=== PATIENT | female | born 1980 ===

== ENCOUNTER 2019-01-24 07:27 | Day surgery (SDC) | payer OTHER ==
[2019-01-22 15:41] VITALS: BP 138/91
[2019-01-22 15:52] LABS: BASOPHIL % 0.2 % (0.0-0.2); EOSINOPHIL # 0.1 10^3/uL (0.0-0.2); EOSINOPHIL % 2.4 % (0.0-5.0); HEMOGLOBIN 10.2 g/dL (12.0-15.0); LYMPHOCYTES # 1.3 10^3/uL (1.0-4.8); LYMPHOCYTES % 24.3 % (24.0-44.0); MEAN CELL HGB 24.6 pg (26-34); MEAN CELL HGB CONCENTRATION 33.8 g/dL (33-37); MEAN CORP VOLUME 72.9 fL (78-100); MEAN PLATELET VOLUME 9.9 fL (7.8-11.0); MONOCYTES # 0.5 10^3/uL (0.3-0.8); MONOCYTES % 9.8 % (5.0-12.0); NEUTROPHIL # 3.4 10^3/uL (1.8-7.7); NEUTROPHILS % 63.1 % (41.0-85.0); RED CELL DISTRIBUTION WIDTH 16.1 % (11.5-14.5); WHITE BLOOD CELL 5.4 10^3/uL (4.5-11.0)
[2019-01-22 16:11] LABS: CARBON DIOXIDE 27.7 mmol/L (20.0-32)
[~2019-01-24] VITALS: Ht 154.9 cm; Wt 64.5 kg
[2019-01-24] VITALS (10 sets, daily range): BP systolic 106–173; BP diastolic 61–79
[~2019-01-24 07:27] MED LIST: DECADRON ONE; DIPRIVAN IV ONE; HYDR-2368 PO; LACTATED RINGERS 1,000 ML ONE; LEVAQUIN 100 ML IV ONE; LIDOCAINE 2% VIAL ONE; NS 100ML 100 ML IV ONE; PHEN37.5 PO; SUBLIMAZE ONE; TAMS-14 PO; TORADOL ONE; VERSED ONE; ZOFRAN ONE
--- NOTE | 2019-01-24 07:45 | PCM.EKG ---
[facility] Test Date: 2019-01-24 Test Time: 07:35:19 Pat Name: CAITLYN CATES Department: Room: Gender: F [id number] Technical Lead: : 1980 Requested By: CAREY LUND Order Number: [id number] Reading MD: Ferny Loera Measurements Intervals [place] Rate: 55 P: 16 KS: 134 QRS: 6 QRSD: 86 T: 12 QT: 450 QTc: 430 Interpretive Statements Sinus bradycardia Otherwise normal ECG No previous ECG available for comparison Electronically Signed On 01-24-2019 11:11:44 CDT by Ferny Loera Please click the below link to view image of tracing.
[2019-01-24] MEDS: LACTATED RINGERS 1,000 ML IV SCH (07:46)
[2019-01-24] MEDS ORDERED: NS 3000ML IRR IR ONE (09:01)
[2019-01-24] MEDS ORDERED: SODIUM CHLORIDE IR ONE (09:01)
[2019-01-24] MEDS ORDERED: TRAM50TA PO (09:56)
[2019-01-24] MEDS ORDERED: CIPR500T86 PO (09:56)
[2019-01-24] MEDS ORDERED: NORCO 7.5MG PO PRN (10:00)
[2019-01-24] MEDS ORDERED: SUBLIMAZE IV PRN (10:00)
[2019-01-24] MEDS ORDERED: ZOFRAN IV PRN (10:00)
[2019-01-24] MEDS ORDERED: LACTATED RINGERS 1,000 ML IV SCH (10:00)
[2019-01-24] MEDS ORDERED: DILAUDID IV PRN (10:00)
--- NOTE | 2019-01-24 11:09 | OPH ---
DATE OF SURGERY: 01/24/2019 PREOPERATIVE DIAGNOSIS: Calculus, left distal ureter. FINAL DIAGNOSIS: Calculus, left distal ureter. PROCEDURES: Cystoscopy, left retrograde ureteroscopy with basket stone extraction. DESCRIPTION OF PROCEDURE: The patient was brought to the cystoscopy room and was put in supine position on the cystoscopy table. After the patient was given a satisfactory and adequate LMA general anesthesia, the patient was placed in the lithotomy position. The genitalia was then prepped and draped aseptically in the usual manner. First, a 23-Burmese cystoscope was inserted per urethra up to the bladder. With the use of the right angle lens, the bladder was visualized. Both ureteral orifices were identified. There was no tumor, no calculi, no ulcerations seen. A left retrograde was initially performed by inserting a ureteral catheter and the left ureteral orifice and injected with Omnipaque. It showed some slight dilatation in the distal ureter and ureteroscopy was then performed using a semirigid 7-Burmese ureteroscope and it reveals a stone in the left distal ureter and basket stone extraction was performed. After this was done, the procedure was terminated. The ureteroscope was removed and the cystoscope was reinserted to the bladder and bladder was emptied with fluid. The patient was then awakened and transferred to the recovery room in stable condition. Darwin Hernandez MD DR: DENISE/leslie JOB# [id number]
--- NOTE | 2019-01-24 13:06 | DIREP ---
PROCEDURE:XRAY UROGRAPHY RETROGRADE COMPARISON:None. INDICATIONS:lt utereal stone, 88.9 s. fluoro, 22.76 mGy, 10 images, 10cc Omnipaque used TECHNIQUE:10 digital images were obtained in the cystoscopy suite. 89 seconds fluoroscopy time was utilized. 10 cc Omnipaque used. FINDINGS:The left ureter was cannulized. The mid and distal portion of the left ureter appears normal. CONCLUSION: 1. Fluoroscopic assistance provided by the radiology department. Please refer to operative report by Dr. Hernandez. Dictated by: Flaco Bray M.D. on 01/24/2019 at 01:02 PM
== END 2019-01-24 11:35 | disposition home or self-care (01) ==
LOC: SDC 07:27
PROVIDERS: ATTEND Urology
DX: N20.1 Calculus of ureter (principal); E66.3 Overweight; Z68.26 Body mass index [BMI] 26.0-26.9, adult; Z79.899 Other long term (current) drug therapy; Z79.2 Long term (current) use of antibiotics; Z98.51 Tubal ligation status; Z98.890 Other specified postprocedural states; Z90.49 Acquired absence of other specified parts of digestive tract; Z83.3 Family history of diabetes mellitus; Z82.49 Family history of ischemic heart disease and other diseases of the circulatory system
CPT/HCPCS: 36415 ×2; 52352; 74420; 80051; 82565; 84520; 84703; 85025; 85610; 85730; 93005; A4217 ×2; J1100; J1885; J1956; J2001; J2250; J2405; J3010; J3490; J7050; J7120; Q9966; 76000; C1758; C1769; C1894